=== PATIENT | female | born 1990 | race African-American/Black ===

== ENCOUNTER 2017-01-27 23:38 | Emergency (ER) | payer MEDICAID ==
--- NOTE | 2017-01-30 07:05 | ER ---
ADMIT: 01/27/2017 RM/LOC: ER [facility] MR#: [id number] [address] [facility] [address] [place], [place] [address] GRIJALVARAMÓN TED HAMLIN [address] [address] Emergency Room Report SEX: F AGE: 26 : 1990 DATE: 01/27/2017 The patient is a 26-year-old female with past medical history of peptic ulcer, came to the ER with chief complaint of crampy abdominal pain mostly in the epigastric area, sometimes go to the right upper quadrant and she had it for the last 3 hours. The patient also complains of mild constipation. The patient was nauseous, but did not vomit. The patient states she had similar episodes in the past, which all resolved by itself spontaneously. In the ER, the patient was in no distress when I got to room, the patient was sleeping, the vitals were normal, the patient was afebrile, the patient was not tachycardic, and blood pressure is good, head and neck exam is normal, bilateral equal breath sounds, normal heart sounds, S1 and S2. Abdomen is soft, but mildly distended, there is no tenderness or rebound tenderness or guarding in abdomen. The patient had no CVA tenderness. The patient received GI cocktail, test was negative. Urine was negative for infection. CBC white blood cell count was 9.8, hemoglobin was 13.5 with hematocrit of 42.2 and platelet of 324. CMP was noncontributory and was normal, lactic acid was 0.8 and PT, PTT, INR were also normal too. The upright abdomen did not show any air fluid level or other abnormalities. The patient was reexamined, pain was resolved. The patient has stable vitals. The patient was discharged to home to be followed up with the primary doctor as needed. Jim Shahid MD/ asaf JOB #: [id number] CC: Jim Shahid MD, Attending Physician Maddy Baer MD, Family Physician
== END 2017-01-28 03:00 | disposition home or self-care (01) ==
LOC: ER 23:38
DX: R10.13 Epigastric pain (principal); J45.909 Unspecified asthma, uncomplicated; F17.200 Nicotine dependence, unspecified, uncomplicated; Z79.899 Other long term (current) drug therapy

== ENCOUNTER 2017-02-22 02:37 | Emergency (ER) | payer MEDICAID ==
--- NOTE | 2017-02-26 20:00 | ER ---
ADMIT: 02/22/2017 RM/LOC: ER [facility] MR#: [id number] [id number] [place], [place] [address] GRIJALVARAMÓN BRIGGS TED H[facility] [address] [address] Emergency Room Report SEX: F AGE: 26 : 1990 DATE: 02/22/2017 The patient is a 26-year-old female, well-known to this physician and institution, with asthma, complains of increasing shortness of breath despite Zithromax and rescue inhaler. Exam remarkable for nontoxic, afebrile female, obvious nasal congestion, decreased breath sounds. No audible wheeze. Responded partially to DuoNeb aerosol. CTA chest negative for PE. Chest x- ray, nondiagnostic. D-dimer slightly elevated at 0.58, BN peptide 9, troponin less than 0.15. Normal CBC, CMP. The patient discharged on prednisone 60 mg daily x5 days, Asmanex 220 mcg Twisthaler two puffs b.i.d., doxycycline 100 mg b.i.d. x7 days, Neti Pot nasal wash followed by Flonase. Follow up with Dr. Mcdonnell as needed. Mikhail Cook MD/ jadl JOB #: [id number] CC: Mikhail Cook MD, Attending Physician Hany Mcdonnell MD, Family Physician Hany Mcdonnell MD
== END 2017-02-22 06:22 | disposition home or self-care (01) ==
LOC: ER 02:37
DX: J45.909 Unspecified asthma, uncomplicated (principal); F17.210 Nicotine dependence, cigarettes, uncomplicated; Z98.890 Other specified postprocedural states; Z79.899 Other long term (current) drug therapy

== ENCOUNTER 2017-03-20 20:24 | Emergency (ER) | payer MEDICAID ==
--- NOTE | 2017-03-30 18:41 | ER ---
ADMIT: 03/20/2017 RM/LOC: ER [facility] MR#: [id number] [facility] [address] [place], [place] [address] RUDI RAMÓN TED H[facility]LIN [address] [address] Emergency Room Report SEX: F AGE: 26 : 1990 DATE: 03/20/2017 HISTORY OF PRESENT ILLNESS: The patient is a 26-year-old female with no past medical history, came here with one day of epigastric and suprapubic pain which is crampy and intermittent, it comes and goes. The patient states she had previous symptoms in the past which resolved spontaneously. The patient also states that she did not have mensuration for the last two months, previously the menstruation has been always regular. The patient denies vaginal bleeding or vaginal spotting or passage of any tissue and also denies any urinary symptoms. The patient also complains of mild nausea without vomiting. PHYSICAL EXAMINATION: VITAL SIGNS: Vitals are stable. HEAD AND NECK: Noncontributory. CHEST: Clear bilaterally. HEART: Normal heart sounds. ABDOMEN: Has very mild epigastric and suprapubic tenderness without any rebound tenderness or guarding. There is no CVA tenderness. The rest of the physical exam is noncontributory. The patient had normal UA and negative urine test. The rest of the lab work was also noncontributory and negative. The patient received IV fluids, morphine, and GI cocktail, pain was completely controlled. The patient was reexamined and states she has no complaints, abdomen was soft and benign. The patient prefers to go home and be followed by primary doctor as needed. The patient was discharged to home. Jim Shahid MD/ asaf JOB #: [id number] CC: iMkhail Cook MD, Attending Physician Bri Parr MD, Family Physician
== END 2017-03-20 22:05 | disposition home or self-care (01) ==
LOC: ER 20:24
DX: R10.13 Epigastric pain (principal); F17.210 Nicotine dependence, cigarettes, uncomplicated

== ENCOUNTER 2017-03-21 17:42 | Emergency (ER) | payer MEDICAID | END 2017-03-21 18:45 | disposition home or self-care (01) | DX: N94.6 Dysmenorrhea, unspecified (principal); Z79.899 Other long term (current) drug therapy ==